=== PATIENT | male | born 1950 | race Caucasian/White ===

== ENCOUNTER 2017-03-20 15:25 | Emergency (ER) | payer MEDICARE, BC ==
[2017-03-20 15:54] VITALS: BP 115/93
--- NOTE | 2017-03-20 16:56 | UC ---
Skin Complaint HPI - HPI Summary HPI Summary: Pt c/o pruritic rash that began 2-3 days ago and began at feet. Pt reports that he has new laundry soap - History of Current Complaint Chief Complaint: UCRash Time Seen by Provider: 03/20/17 16:48 Stated Complaint: ALLERGIC REACTION Hx Obtained From: Patient Onset/Duration: Gradual Onset, Lasting Days, Still Present, Worse Since - onset Skin Exposure Onset/Duration: Days Ago, Worse Since: - onset Timing: Constant Onset Severity: Mild Current Severity: Moderate Location: Diffuse Character: Pruritus, Redness, Raised Aggravating Factor(s): Touch Alleviating Factor(s): Nothing Associated Signs & Symptoms: Positive: Rash Related History: Possible Reaction to: Environmental Exposure - Allergy/Home Medications Allergies/Adverse Reactions: Allergies Allergy/AdvReac Type Severity Reaction Status Date / Time No Known Allergies Allergy Verified 03/20/17 15:47 Home Medications: Home Medications Lysine [l-Lysine] 1,000 mg PO DAILY 03/20/17 [History Confirmed 03/20/17] Simvastatin TAB(NF) [Zocor 20 MG (NF)] 40 mg PO 1700 03/20/17 [History Confirmed 03/20/17] Valsartan TAB* [Diovan TAB*] 40 mg PO DAILY 03/20/17 [History Confirmed 03/20/17 ] metFORMIN* [Glucophage 500 MG TAB *] 500 mg PO BID 03/20/17 [History Confirmed 03/20/17] Review of Systems Constitutional: Negative Skin: Rash Eyes: Negative ENT: Negative Respiratory: Negative Cardiovascular: Negative Gastrointestinal: Negative Genitourinary: Negative Motor: Negative Neurovascular: Negative Musculoskeletal: Negative Neurological: Negative Psychological: Negative Is Patient Immunocompromised?: No All Other Systems Reviewed And Are Negative: Yes PMH/Surg Hx/FS Hx/Imm Hx Previously Healthy: Yes Endocrine History: Diabetes - Surgical History Surgical History: Yes Surgery Procedure, Year, and Place: Bilateral Cataract Extractions, Appendectomy , Right Third and Fourth Trigger Finger - Family History Known Family History: Positive: Cardiac Disease - Social History Occupation: Retired Lives: With Family Alcohol Use: None Substance Use Type: None Smoking Status (MU): Former Smoker Have You Smoked in the Last Year: No - Immunization History Most Recent Influenza Vaccination: February 2017 Physical Exam Triage Information Reviewed: Yes Appearance: Well-Appearing Vital Signs: Initial Vital Signs Temp 98.3 F 03/20/17 15:45 Pulse 76 03/20/17 15:45 Resp 16 03/20/17 15:45 BP 115/93 03/20/17 15:45 Pulse Ox 100 03/20/17 15:45 Vital Signs Reviewed: Yes Eye Exam: Normal ENT Exam: Normal Neck exam: Normal Respiratory Exam: Normal Musculoskeletal Exam: Normal Neurological Exam: Normal Psychological Exam: Normal Skin Exam: Other Skin: Positive: rashes - diffuse dorina tracts, diffuse, eryhtmeatous area bilateral knees, Course/Dx - Differential Diagnoses - Skin Complaint Differential Diagnoses: Contact Dermatitis, Scabies - Diagnoses Provider Diagnoses: scabies. contact dermatitis Discharge - Discharge Plan Condition: Stable Disposition: HOME Prescriptions: Cetirizine* [ZyrTEC 10 MG TAB*] 10 mg PO DAILY #7 tab Permethrin 5% CREAM* 1 applic TOPICAL SEE INSTRUCTIONS #1 tube methylPREDNISolone TAB* [Medrol TAB*] 4 - 8 mg PO .SEE JOHN #1 john Patient Education Materials: Contact Dermatitis (ED), Scabies (ED) Referrals: Savanah Garcia MD [Primary Care Provider] - If Needed
== END 2017-03-20 17:10 | disposition home or self-care (01) ==
LOC: UCCORT 15:25
DX: L25.9 Unspecified contact dermatitis, unspecified cause (principal); B86 Scabies; Z87.891 Personal history of nicotine dependence
CPT/HCPCS: 99202; G0463

== ENCOUNTER 2017-05-01 17:32 | Emergency (ER) | payer MEDICARE, BC ==
[2017-05-01 18:17] VITALS: BP 134/62
--- NOTE | 2017-05-01 19:44 | UC ---
Knee Pain HPI - HPI Summary HPI Summary: Pt c/o of right knee pain that has worsened over the last 2 months. Pt reports that he was seen by PCP DR. Savanah Garcia on 04/25/17, had xray of right knee that showed arthritis in right knee. Pt c/o that pain has worsened and with c/ o weakness at the end of each day. pt was given RX for meloxicam and states that it improves the pain in right knee. Pt denies injury or trauma. Pt was referred to [facility] orthopedic and then cancelled the appointment and requested appointment with DR. Rivero at [facility]. Pt states that he called today at 5 pm but the office was closed. - History of Current Complaint Chief Complaint: UCLowerExtremity Stated Complaint: RT KNEE PAIN Time Seen by Provider: 05/01/17 19:12 Hx Obtained From: Patient Onset/Duration: Gradual Onset, Lasting Weeks - 8 Severity Initially: Mild Severity Currently: Mild Character: Dull, Aching, Stiffness Aggravating Factor(s): Weight Bearing, Stairs Alleviating Factor(s): Rest, Position, Other - meloxicam Associated Signs And Symptoms: Positive: Weakness Able to Bear Weight: Yes - Risk Factors Septic Arthritis Risk Factor: Negative Gout Risk Factor: Age ^ 38, Male - Allergies/Home Medications Allergies/Adverse Reactions: Allergies Allergy/AdvReac Type Severity Reaction Status Date / Time No Known Allergies Allergy Verified 05/01/17 18:12 Home Medications: Home Medications Aspirin TAB* [Aspirin 325 MG TAB*] 325 mg PO DAILY 05/01/17 [History Confirmed 05/01/17] Meloxicam(NF) [Mobic(NF)] 15 mg PO DAILY 05/01/17 [History Confirmed 05/01/17] PMH/Surg Hx/FS Hx/Imm Hx Previously Healthy: Yes - Surgical History Surgical History: Yes Surgery Procedure, Year, and Place: Bilateral Cataract Extractions, Appendectomy , Right Third and Fourth Trigger Finger - Family History Known Family History: Positive: Cardiac Disease - Social History Occupation: Employed Part-time Lives: With Family Alcohol Use: None Substance Use Type: None Smoking Status (MU): Former Smoker Length of Time of Smoking/Using Tobacco: 8 Years Have You Smoked in the Last Year: No When Did the Patient Quit Smoking/Using Tobacco: ~1972 - Immunization History Most Recent Influenza Vaccination: February 2017 Review of Systems Constitutional: Negative Skin: Negative Eyes: Negative ENT: Negative Respiratory: Negative Cardiovascular: Negative Gastrointestinal: Negative Genitourinary: Negative Motor: Weakness, Other - posterior right knee pain Neurovascular: Negative Musculoskeletal: Arthralgia - right knee, Myalgia Neurological: Negative Psychological: Negative Is Patient Immunocompromised?: No All Other Systems Reviewed And Are Negative: Yes Physical Exam Triage Information Reviewed: Yes Appearance: Well-Appearing Vital Signs: Initial Vital Signs Temp 98.8 F 05/01/17 18:09 Pulse 68 05/01/17 18:09 Resp 16 05/01/17 18:09 BP 134/62 05/01/17 18:09 Pulse Ox 98 05/01/17 18:09 Vital Signs Reviewed: Yes Eye Exam: Normal ENT Exam: Normal Neck exam: Normal Respiratory Exam: Normal Cardiovascular Exam: Normal Musculoskeletal Exam: Normal Musculoskeletal: Positive: Strength Intact, ROM Intact, No Edema Neurological Exam: Normal Psychological Exam: Normal Skin Exam: Normal Knee Pain Course/Dx - Course Course Of Treatment: I discussed with the pt the need to follow up with an orthopedic provider. Pt verbalized understanding and agreed to plan of care. - Differential Dx/Diagnosis Differential Diagnosis/HQI/PQRI: Sprain, Strain, Tendonitis Provider Diagnoses: right knee pain Discharge - Discharge Plan Condition: Stable Disposition: HOME Patient Education Materials: Knee Pain (ED) Referrals: Savanah Garcia MD [Primary Care Provider] - If Needed Lg Rivero MD [Medical Doctor] - As Soon As Possible Additional Instructions: Please follow up with Dr. Rivero as scheduled.
== END 2017-05-01 19:56 | disposition home or self-care (01) ==
LOC: UCCORT 17:32
DX: M25.561 Pain in right knee (principal); Z87.891 Personal history of nicotine dependence; Z79.82 Long term (current) use of aspirin
CPT/HCPCS: 99211; G0463